=== PATIENT | female | born 1945 | race Caucasian/White ===

== ENCOUNTER 2017-05-02 15:59 | Emergency (ER) | payer SELFPAY ==
[~2017-05-02] VITALS: Ht 172.7 cm; Wt 90.0 kg
[~2017-05-02 15:59] MED LIST: ATORVASTATIN CA10 MG PO; CLOPIDOGREL75 MG PO; LEVOTHYROXIN75 MCG PO; NAPROSYN500 MG PO
[2017-05-02 17:18] LABS: HEMATOCRIT 45.3 % (37.0-47.0); HEMOGLOBIN 15.1 g/dl (12.0-16.0); IMMATURE GRANULOCYTES 0.4 % (0.0-1.0); MEAN CELL VOLUME 94.2 fL CALC (80.0-100.0); MEAN CORPUSCULAR HGB 31.4 pG CALC (26.0-32.0); MEAN CORPUSCULAR HGB CONC 33.3 g/L CALC (32.0-36.0); NEUT# 4.67 thou/uL (2.00-7.15); RED BLOOD COUNT 4.81 mill/uL (4.20-5.60); RED CELL DISTRI WIDTH 15.7 % (11.5-15.5)
[2017-05-02 17:29] LABS: ALBUMIN 4.1 g/dL (3.2-5.0); ALKALINE PHOSPHATASE 147 u/l (38-126); ANION GAP 13 (6-22 (CALC)); BILIRUBIN, TOTAL 0.5 mg/dL (0.0-1.4); BUN 15 mg/dL (8-23); BUN/CREATININE RATIO 24 (12-20 (CALC)); CALCIUM 9.5 mg/dL (8.4-10.2); CARBON DIOXIDE 28 mmol/l (22-30); CHLORIDE 107 mmol/l (95-108); CREATININE 0.6 mg/dL (0.5-1.0); GFR > 60 ML/MIN (>=60 (CALC)); GFR FOR AFR.AMER. > 60 ML/MIN (>=60 (CALC)); GLUCOSE 90 mg/dL (82-115); SGOT/AST 30 u/l (9-36); SGPT/ALT 34 u/l (11-66); SODIUM 144 mmol/l (137-146); TOTAL PROTEIN 7.5 g/dL (6.3-8.2)
[2017-05-02 17:41] LABS: MYOGLOBIN 38 ng/mL (0 - 62)
[2017-05-02] MEDS ORDERED: ROBITUSSIN AC10 ML PO (18:14)
[2017-05-02] MEDS ORDERED: AMOXICILLIN/PO500 MG PO (18:14)
[2017-05-02 18:17] VITALS: BP 154/64
== END 2017-05-02 18:23 | disposition home or self-care (01) | DRG 153 ==
LOC: ED 15:59
PROVIDERS: Emergency Medicine
DX: J02.0 Streptococcal pharyngitis (principal); R05 Cough; R06.02 Shortness of breath; R09.81 Nasal congestion